=== PATIENT | male | born 1975 | race Caucasian/White ===

== ENCOUNTER 2017-04-28 22:57 | Emergency (ER) | payer SELFPAY ==
[2017-04-28 23:03] VITALS: BP 125/85; PULSE 84; TEMP 97; BMI 33.5
[2017-04-29] MEDS ORDERED: DIPHTH,PERTUSS(ACELL),TET 0.5 ML DISP.SYRIN IM ONE (00:17)
--- NOTE | 2017-04-29 01:25 | PDOC ---
History of Present Illness - History of Present Illness Initial Comments: 04/29/17 00:40 The patient is a 42 year old right handed male who presents for evaluation of a right hand laceration. The patient reports that he was working on his car and lacerated his hand on some sheet metal prompting his presentation to the ED today. He denies any loss of sensation, numbness, or weakness in his hand. He denies SOB, chest pain, abdominal pain, or other injuries. <Tello Maldonado - Last Filed: 04/29/17 02:13> <Helga Moreira - Last Filed: 04/29/17 04:55> - General Chief Complaint: Laceration Stated Complaint: LACERATION Time Seen by Provider: 04/29/17 00:06 Past History - Past Medical History Other medical history: denies - Immunization History Immunization Up to Date: No - Suicide/Smoking/Psychosocial Hx Smoking History: Never smoked Substance Use Type: None <Tello Maldonado - Last Filed: 04/29/17 02:13> <Helga Moreira - Last Filed: 04/29/17 04:55> - Past Medical History Allergies/Adverse Reactions: Allergies Allergy/AdvReac Type Severity Reaction Status Date / Time No Known Allergies Allergy Verified 04/28/17 23:03 Home Medications: Ambulatory Orders Amoxicillin/Potassium Clav [Augmentin 875-125 Tablet] 1 each PO BID #20 tablet 03/11/16 Amoxicillin/Potassium Clav [Augmentin 875-125 Tablet] 1 each PO BID #14 tablet 04/29/17 Review of Systems - Review of Systems Comments:: 04/29/17 02:19 Constitutional: No fevers, chills, fatigue, malaise HEENT: No Rhinorrhea, nasal congestion, Cardiovascular: No chest pain, syncope, palpitations, lightheadedness Respiratory: No Cough, SOB, Hemoptysis, Gastrointestinal: No Abdominal pain, Nausea, Vomiting, Constipation, Diarrhea, Melena Genitourinary: No Dysuria, Frequency, Urgency, Hesitancy, Hematuria, Flank pain Musculoskeletal: Right hand laceration. No Myalgia, arthralgia Skin: No rashes, itching, bruising, pallor Neurologic: No Headache, Dizziness, Numbness, Weakness, or Tingling <Tello Maldonado - Last Filed: 04/29/17 02:13> *Physical Exam - Vital Signs Last Vital Signs Temp Pulse Resp BP Pulse Ox 97 F L 84 18 125/85 99 04/28/17 22:59 04/28/17 22:59 04/28/17 22:59 04/28/17 22:59 04/28/17 22:59 - Physical Exam Comments: 04/29/17 02:20 General Appearance: Nourished. No Apparent Distress HEENT: EOMI, JOSE ANGEL. Respiratory/Chest: Lungs Clear, Normal Breath Sounds. No Crackles, Rales, Rhonchi, Wheezing Cardiovascular: Regular Rhythm, Regular Rate. No Murmur, Gallops, Rubs Gastrointestinal/Abdominal: Normal Bowel Sounds, Soft. No Guarding, Rebound, Tenderness Musculoskeletal: No CVA Tenderness Extremity: 4cm laceration to the right palm without exposed tendon or bone. Normal range of motion. Sensation to light touch and temperature intact. Normal Capillary Refill Integumentary: Normal Color, Dry, Warm Neurologic: Fully Oriented, Alert, Normal Mood/Affect, Normal Response, Motor Strength 5/5. <Tello Maldonado - Last Filed: 04/29/17 02:13> - Vital Signs Last Vital Signs Temp Pulse Resp BP Pulse Ox 97 F L 84 18 125/85 99 04/28/17 22:59 04/28/17 22:59 04/28/17 22:59 04/28/17 22:59 04/28/17 22:59 <Helga Moreira - Last Filed: 04/29/17 04:55> Procedures - Laceration/Wound Repair Right Hand Wound Length: 2.6 to 5.0 cm Wound Explored: clean, no foreign body present Wound's Depth, Shape: superficial, linear Irrigated w/ Saline: Yes Anesthesia: 1% Lidocaine Amount of Anesthetic (ccs): 5 Wound Repaired With: Sutures Suture Size/Type: 4:0 Number of Sutures: 11 Layer Closure: Yes Sterile Dressing Applied: Yes <Tello Maldonado - Last Filed: 04/29/17 02:13> ED Treatment Course - RADIOLOGY Radiology Studies Ordered: Category Date Time Status HAND- RIGHT [RAD] Stat Radiology 04/29/17 00:17 Ordered - Medications Given in the ED: ED Medications Discontinued Medications Generic Name Dose Route Start Last Admin Trade Name Freq PRN Reason Stop Dose Admin Diphtheria/Tetanus/Acell Pertussis 0.5 ml 10/22/17 00:17 04/29/17 00:24 Boostrix - IM 04/29/17 00:18 0.5 ml .ONCE ONE Administration <Tello Maldonado - Last Filed: 04/29/17 02:13> - Medications Given in the ED: ED Medications Discontinued Medications Generic Name Dose Route Start Last Admin Trade Name Natasha PRN Reason Stop Dose Admin Diphtheria/Tetanus/Acell Pertussis 0.5 ml 04/29/17 00:17 04/29/17 00:24 Boostrix - IM 04/29/17 00:18 0.5 ml .ONCE ONE Administration <Helga Moreira - Last Filed: 04/29/17 04:55> Medical Decision Making - Medical Decision Making 04/29/17 02:23 The patient is a 42 year old right handed male who presents for evaluation of a right hand laceration. The patient's laceration appears to be superficial in nature without bone involvement. We attempted to obtain a plain film of the right hand, but the patient refused. We will update the patient's tetanus status here in the ED and will send a course of antibiotics to the pharmacy for infection prophylaxis. We repaired the laceration with 11 4-0 nylon sutures. We gave the patient wound care instructions as well as return precautions and informed him to return to the ED in 7 days to have his sutures removed. The patient voiced understanding and is agreeable with the plan. <Tello Maldonado - Last Filed: 04/29/17 02:13> - Medical Decision Making 04/29/17 04:46 Pt lacerated the volar aspect of his palm proximal to the 3rd and 4th fingers. Pt's deep and superficial flexors are intact; lumbricals are intact. Pt has no active bleeding. Pt was repaired with 11 interrupted 4.0 Nylon sutures. Pt was dressed with sterile dressing . 04/29/17 04:52 We prescribed prophylactic abx; sent to his pharmacy. <Helga Moreira - Last Filed: 04/29/17 04:55> *DC/Admit/Observation/Transfer - Discharge Dispostion Admit: No <Tello Maldonado - Last Filed: 04/29/17 02:13> <Helga Moreira - Last Filed: 04/29/17 04:55> Diagnosis at time of Disposition: Laceration - Discharge Dispostion Disposition: HOME Condition at time of disposition: Improved - Prescriptions Prescriptions: Amoxicillin/Potassium Clav [Augmentin 875-125 Tablet] 1 each PO BID #14 tablet - Patient Instructions Printed Discharge Instructions: DI for Laceration Repair, DI for Suture Removal Additional Instructions: Please return to the ER if you experience concerning or worsening symptoms including fevers, chills, pus drainage from the wound. Please keep the wound dry for 24 hours after which you may cleanse it lightly with soap and water. Please keep the wound clean and return in 7 days to have your sutures removed.
== END 2017-04-29 01:37 | disposition home or self-care (01) ==
LOC: JER 22:57
PROC: 0HQFXZZ Repair Right Hand Skin, External Approach (ICD-10-PCS; principal; 2017-04-28)
PROC: 3E0234Z Introduction of Serum, Toxoid and Vaccine into Muscle, Percutaneous Approach (ICD-10-PCS; 2017-04-28)
DX: S61.411A Laceration without foreign body of right hand, initial encounter (principal); W26.8XXA Contact with other sharp object(s), not elsewhere classified, initial encounter; Y93.89 Activity, other specified; Y92.89 Other specified places as the place of occurrence of the external cause
CPT/HCPCS: 90715; 99281-25

== ENCOUNTER 2021-11-24 18:46 | Emergency (ER) | payer OTHER ==
[2021-11-24 18:56] VITALS: BP 145/90; PULSE 85; TEMP 97.9; BMI 33.5
[2021-11-24] MEDS ORDERED: ACETAMINOPHEN 500 MG TABLET (FP) PO ONE (19:45)
[2021-11-24] MEDS ORDERED: ACETAMINOPHEN 500 MG TABLET (FP) ONE (19:53)
[2021-11-24 20:16] LABS: BASO % 2.3 % (0-2.0); EOS % 3.3 % (0-4.5); HEMATOCRIT 45.9 % (35.4-49); HEMOGLOBIN 15.9 GM/dL (11.7-16.9); LYMPH % 22.8 % (8-40); MCH 33.1 pg (25.7-33.7); MCHC 34.5 g/dl (32.0-35.9); MEAN CELL VOLUME 95.7 fl (80-96); MEAN PLT VOLUME 7.9 fl (7.5-11.1); MONO % 9.4 % (3.8-10.2); NEUT % 62.2 % (42.8-82.8); PLATELET COUNT 208 10^3/uL (134-434); RDW 12.8 % (11.9-15.9); WHITE BLOOD COUNT 4.8 K/mm3 (4.0-10.0)
[2021-11-24 20:29] LABS: INR 0.91 (0.83-1.09); PROTHROMBIN TIME (PATIENT) 10.5 SEC (9.7-13.0)
[2021-11-24 20:32] LABS: ACTIVATED PTT 34.4 SECONDS (25.2-36.5)
[2021-11-24 20:43] LABS: ALBUMIN 3.7 g/dl (3.4-5.0); CALCIUM 8.9 mg/dL (8.5-10.1)
[2021-11-24 20:44] LABS: MAGNESIUM 2.2 mg/dL (1.8-2.4)
[2021-11-24 20:47] LABS: BLOOD UREA NITROGEN 21.7 mg/dL (7-18); CREATININE 0.9 mg/dL (0.55-1.3)
[2021-11-24 20:48] LABS: BILIRUBIN,TOTAL 0.6 mg/dL (0.2-1); TOT PROT 7.1 g/dl (6.4-8.2)
[2021-11-24] MEDS ORDERED: NAPROXEN 500 MG TABLET PO ONE (21:03)
[2021-11-24] MEDS ORDERED: NAPROXEN 500 MG TABLET ONE (21:12)
== END 2021-11-24 21:05 | disposition home or self-care (01) ==
LOC: JERFT 18:46 → JER 18:46 → JERFT 21:05
DX: S29.011A Strain of muscle and tendon of front wall of thorax, initial encounter (principal); Y99.9 Unspecified external cause status
CPT/HCPCS: 36415; 71046-TC-FY; 80053; 83735; 84484; 85025; 85610; 85730; 93005; 93010; 99285-25